=== PATIENT | male | born 1960 | race Caucasian/White ===

== ENCOUNTER 2016-08-03 12:11 | Emergency (ER) | payer OTHER | END 2016-08-03 14:10 | disposition home or self-care (01) | LOC: ER1 12:11 | DX: S93.491A Sprain of other ligament of right ankle, initial encounter (principal); E11.9 Type 2 diabetes mellitus without complications; I10 Essential (primary) hypertension; W18.40XA Slipping, tripping and stumbling without falling, unspecified, initial encounter; X50.1XXA Overexertion from prolonged static or awkward postures, initial encounter; Y92.009 Unspecified place in unspecified non-institutional (private) residence as the place of occurrence of the external cause; Z79.4 Long term (current) use of insulin; Z79.84 Long term (current) use of oral hypoglycemic drugs; Z79.899 Other long term (current) drug therapy | CPT/HCPCS: 73610; 73630; 99283 ==